=== PATIENT | female | born 1990 | race Asian ===

== ENCOUNTER 2017-02-23 14:56 | Emergency (ER) | payer OTHER ==
[~2017-02-23] VITALS: Ht 162.6 cm; Wt 72.6 kg
[2017-02-23 15:04] VITALS: BP 126/81; TEMP 100.1
[2017-02-23 15:17] LABS: PLATELET COUNT 255 K/uL (152-353)
[2017-02-23 15:27] LABS: POTASSIUM 3.2 mmol/L (3.6-5.2); SODIUM 139 mmol/L (136-145)
== END 2017-02-23 16:00 | disposition home or self-care (01) ==
LOC: ED 14:56
DX: N10 Acute pyelonephritis (principal)
CPT/HCPCS: 36415; 80053; 81000; 85027; 87077; 87086; 87088; 87186; 96372; 99283; J0696; J1885